=== PATIENT | male | born 1955 | race Asian ===

== ENCOUNTER 2022-12-25 13:13 | Inpatient (IN) | payer MEDICARE, OTHER ==
[~2022-12-25] VITALS: Ht 160 cm; Wt 68.7 kg
[2022-12-25] MEDS ORDERED: ONDANSETRON HCL 4 MG/2 ML VIAL IV ONE (15:45)
[2022-12-25] MEDS ORDERED: HYDROmorphone HCL 2 MG/ML VL/or syr IM ONE (15:45)
[2022-12-25 17:02] VITALS: PULSE 62; RESP 18; O2SAT 9
[2022-12-25 18:02] LABS: Basophils # (auto) 0 10 ^3/uL (0-0.2); Basophils % (auto) 0.2 % (0.0-2.0); Eosinophils # (auto) 0 10 ^3/uL (0-0.8); Eosinophils % (auto) 0.3 % (0.0-7.0); Hematocrit 47.5 % (41.0-53.0); Lymphocytes # (auto) 1.1 10 ^3/uL (0.4-5.4); Lymphocytes % (auto) 17.5 % (10.0-50.0); Mean Corpuscular Hemoglobin 29.5 pg (28.0-32.0); Mean Corpuscular Hgb Conc. 33.7 g/dL (32.0-36.0); Mean Corpuscular Volume 87.6 fL (80.0-100.0); Monocytes # (auto) 0.4 10 ^3/uL (0-1.3); Monocytes % (auto) 5.9 % (0.0-12.0); Neutrophils # (auto) 4.9 10 ^3/uL (1.6-8.6); Neutrophils % (auto) 76.1 % (37.0-80.0); Nucleated Red Blood Cells % 0.2 %; Red Blood Cells 5.42 10^6/uL (4.5-5.90); Red Cell Distribution Width 13.5 % (11.8-14.3); White Blood Cell 6.4 10^3/uL (4.4-10.8)
[2022-12-25 18:17] LABS: Albumin 3.8 g/dL (3.4-5.0); Calcium 8.4 mg/dL (8.5-10.1); Potassium 3.8 mmol/L (3.5-5.1)
[2022-12-25 18:21] LABS: BUN/Creatinine Ratio 17.8 (10.0-20.0); Total Protein 7.4 g/dL (6.4-8.2)
[2022-12-25] MEDS ORDERED: MORPHINE SULFATE INJ 2 MG/ml SYRG IV PRN (18:45)
[2022-12-25] MEDS ORDERED: ONDANSETRON HCL 4 MG/2 ML VIAL IV PRN (18:45)
[2022-12-25] MEDS ORDERED: DOCUSATE SOD 100 MG CAP PO PRN (18:45)
[2022-12-25] MEDS ORDERED: ACETAMINOPHEN 325 MG TAB PO PRN (18:45)
[2022-12-25] MEDS ORDERED: NITROGLYCERIN 0.4 MG SL TAB SL PRN (18:45)
[2022-12-25 19:25] VITALS: PULSE 61; RESP 13; O2SAT 94
[2022-12-25] MEDS: SODIUM CHLORIDE 0.9% 1,000 ML IV SCH (19:30)
[2022-12-25] MEDS: SODIUM CHLOR 0.9% PF (SALINE LOCK) 10ML VIAL/SYR IV SCH (22:11)
[2022-12-26 05:27] LABS: Basophils # (auto) 0 10 ^3/uL (0-0.2); Basophils % (auto) 0.1 % (0.0-2.0); Eosinophils # (auto) 0 10 ^3/uL (0-0.8); Eosinophils % (auto) 0.6 % (0.0-7.0); Hematocrit 46.7 % (41.0-53.0); Hemoglobin 15.7 g/dL (13.5-17.5); Lymphocytes # (auto) 1.1 10 ^3/uL (0.4-5.4); Lymphocytes % (auto) 20.5 % (10.0-50.0); Mean Corpuscular Hemoglobin 29.5 pg (28.0-32.0); Mean Corpuscular Hgb Conc. 33.6 g/dL (32.0-36.0); Mean Corpuscular Volume 87.8 fL (80.0-100.0); Monocytes # (auto) 0.3 10 ^3/uL (0-1.3); Monocytes % (auto) 6.6 % (0.0-12.0); Neutrophils # (auto) 3.8 10 ^3/uL (1.6-8.6); Neutrophils % (auto) 72.2 % (37.0-80.0); Nucleated Red Blood Cells % 0.1 %; Red Blood Cells 5.32 10^6/uL (4.5-5.90); Red Cell Distribution Width 13.8 % (11.8-14.3); White Blood Cell 5.2 10^3/uL (4.4-10.8)
[2022-12-26 05:39] LABS: Albumin 3.6 g/dL (3.4-5.0); BUN/Creatinine Ratio 17.9 (10.0-20.0); Bilirubin, Total 0.8 mg/dL (0.2-1.0); Calcium 8.6 mg/dL (8.5-10.1); Total Protein 6.7 g/dL (6.4-8.2)
[2022-12-26] MEDS: SODIUM CHLOR 0.9% PF (SALINE LOCK) 10ML VIAL/SYR IV SCH ×3 (06:08→21:53)
[2022-12-26] MEDS: MORPHINE SULFATE INJ 2 MG/ml SYRG IV PRN (08:47)
[2022-12-26 08:56] VITALS: PULSE 73; RESP 15; O2SAT 97
[2022-12-26] MEDS: SODIUM CHLORIDE 0.9% 1,000 ML IV SCH (11:59)
[2022-12-26 13:36] VITALS: RESP 18
[2022-12-26] MEDS: HYDROcodone-ACET 5/325MG TAB PO PRN (14:24)
[2022-12-26 15:36] LABS: Partial Thromboplastin Time 27.7 SEC (24.5-34.5)
[2022-12-26 17:00] VITALS: BP 121/81; PULSE 73; RESP 17; TEMP 98.1; O2SAT 93
[2022-12-26] MEDS ORDERED: ENOXAPARIN SOD 40 MG/0.4 ML SYRINGE SC ONE (18:00)
[2022-12-26 20:00] VITALS: BP 136/88; PULSE 71; PULSE 75; RESP 18; TEMP 98.8; O2SAT 93
[2022-12-27] VITALS (7 sets, daily range): BP systolic 92–136; BP diastolic 57–88; PULSE 58–76; RESP 14–18; TEMP 97.9–98.8; O2SAT 92–93
[2022-12-27] MEDS: SODIUM CHLORIDE 0.9% 1,000 ML IV SCH ×2 (04:12→20:16)
[2022-12-27] MEDS: HYDROcodone-ACET 5/325MG TAB PO PRN ×3 (04:18→20:50)
[2022-12-27] MEDS: SODIUM CHLOR 0.9% PF (SALINE LOCK) 10ML VIAL/SYR IV SCH ×3 (05:53→20:50)
[2022-12-27 06:09] LABS: Basophils # (auto) 0 10 ^3/uL (0-0.2); Basophils % (auto) 0.2 % (0.0-2.0); Eosinophils # (auto) 0 10 ^3/uL (0-0.8); Hematocrit 46.9 % (41.0-53.0); Hemoglobin 15.9 g/dL (13.5-17.5); Lymphocytes # (auto) 1.5 10 ^3/uL (0.4-5.4); Lymphocytes % (auto) 33.1 % (10.0-50.0); Mean Corpuscular Hemoglobin 29.8 pg (28.0-32.0); Mean Corpuscular Hgb Conc. 33.8 g/dL (32.0-36.0); Mean Corpuscular Volume 88.2 fL (80.0-100.0); Monocytes # (auto) 0.4 10 ^3/uL (0-1.3); Neutrophils # (auto) 2.5 10 ^3/uL (1.6-8.6); Neutrophils % (auto) 56.7 % (37.0-80.0); Nucleated Red Blood Cells % 0.1 %; Red Blood Cells 5.32 10^6/uL (4.5-5.90); Red Cell Distribution Width 13.5 % (11.8-14.3); White Blood Cell 4.4 10^3/uL (4.4-10.8)
[2022-12-27 06:42] LABS: Albumin 3.4 g/dL (3.4-5.0); BUN/Creatinine Ratio 17.1 (10.0-20.0); Bilirubin, Total 0.7 mg/dL (0.2-1.0); Calcium 8.4 mg/dL (8.5-10.1); Total Protein 7.1 g/dL (6.4-8.2)
[2022-12-27] MEDS: PANTOPRAZOLE 40 MG TAB PO SCH (09:19)
[2022-12-28] VITALS (7 sets, daily range): BP systolic 101–136; BP diastolic 61–91; PULSE 62–82; RESP 14–18; TEMP 97.7–98.8; O2SAT 93–95
[2022-12-28] MEDS: SODIUM CHLOR 0.9% PF (SALINE LOCK) 10ML VIAL/SYR IV SCH ×3 (05:44→22:21)
[2022-12-28 05:45] LABS: Basophils # (auto) 0 10 ^3/uL (0-0.2); Basophils % (auto) 0.5 % (0.0-2.0); Eosinophils # (auto) 0.1 10 ^3/uL (0-0.8); Eosinophils % (auto) 1.3 % (0.0-7.0); Hematocrit 46.1 % (41.0-53.0); Hemoglobin 15.6 g/dL (13.5-17.5); Lymphocytes # (auto) 1.8 10 ^3/uL (0.4-5.4); Lymphocytes % (auto) 45.5 % (10.0-50.0); Mean Corpuscular Hemoglobin 29.9 pg (28.0-32.0); Mean Corpuscular Hgb Conc. 33.9 g/dL (32.0-36.0); Mean Corpuscular Volume 88.2 fL (80.0-100.0); Monocytes # (auto) 0.5 10 ^3/uL (0-1.3); Monocytes % (auto) 11.8 % (0.0-12.0); Neutrophils # (auto) 1.7 10 ^3/uL (1.6-8.6); Neutrophils % (auto) 40.9 % (37.0-80.0); Nucleated Red Blood Cells % 0.1 %; Red Blood Cells 5.23 10^6/uL (4.5-5.90); Red Cell Distribution Width 13.4 % (11.8-14.3); White Blood Cell 4.1 10^3/uL (4.4-10.8)
[2022-12-28 06:08] LABS: BUN/Creatinine Ratio 16.7 (10.0-20.0); Calcium 8.5 mg/dL (8.5-10.1); Potassium 3.7 mmol/L (3.5-5.1)
[2022-12-28] MEDS: PANTOPRAZOLE 40 MG TAB PO SCH (10:01)
[2022-12-28] MEDS: HYDROcodone-ACET 5/325MG TAB PO PRN ×2 (12:49→22:16)
[2022-12-28] MEDS: SODIUM CHLORIDE 0.9% 1,000 ML IV SCH (14:14)
[2022-12-29] VITALS (8 sets, daily range): BP systolic 92–127; BP diastolic 65–87; PULSE 57–94; RESP 16–20; TEMP 36.6; O2SAT 91–100
[2022-12-29] MEDS: SODIUM CHLORIDE 0.9% 1,000 ML IV SCH ×2 (05:15→22:56)
[2022-12-29] MEDS: HYDROcodone-ACET 5/325MG TAB PO PRN ×3 (05:19→19:49)
[2022-12-29] MEDS: SODIUM CHLOR 0.9% PF (SALINE LOCK) 10ML VIAL/SYR IV SCH ×3 (06:01→22:57)
[2022-12-29] MEDS: PANTOPRAZOLE 40 MG TAB PO SCH (10:03)
[2022-12-30] VITALS (7 sets, daily range): BP systolic 100–124; BP diastolic 60–92; PULSE 68–82; RESP 14–20; TEMP 97.4–98; O2SAT 92–95
[2022-12-30] MEDS: HYDROcodone-ACET 5/325MG TAB PO PRN ×3 (02:34→20:10)
[2022-12-30] MEDS: SODIUM CHLOR 0.9% PF (SALINE LOCK) 10ML VIAL/SYR IV SCH ×3 (06:29→22:13)
[2022-12-30] MEDS: PANTOPRAZOLE 40 MG TAB PO SCH (09:51)
[2022-12-30] MEDS: SODIUM CHLORIDE 0.9% 1,000 ML IV SCH (17:42)
[2022-12-31 05:00] VITALS: BP 98/62; PULSE 63; RESP 20; TEMP 97.6; O2SAT 94
[2022-12-31] MEDS: HYDROcodone-ACET 5/325MG TAB PO PRN ×2 (05:07→14:05)
[2022-12-31] MEDS: SODIUM CHLOR 0.9% PF (SALINE LOCK) 10ML VIAL/SYR IV SCH ×2 (05:07→13:38)
[2022-12-31] MEDS: SODIUM CHLORIDE 0.9% 1,000 ML IV SCH ×2 (08:35→09:04)
[2022-12-31 08:53] VITALS: BP 119/77; PULSE 56; RESP 16; TEMP 97.2; O2SAT 94
[2022-12-31] MEDS: PANTOPRAZOLE 40 MG TAB PO SCH (09:03)
[2022-12-31] MEDS ORDERED: ENOXAPARIN SOD 40 MG/0.4 ML SYRINGE SC SCH (10:00)
[2022-12-31] MEDS: MORPHINE SULFATE INJ 2 MG/ml SYRG IV PRN ×2 (11:14→17:31)
[2022-12-31 13:14] VITALS: BP 107/71; PULSE 63; RESP 16; TEMP 97.4; O2SAT 96
[2022-12-31 17:00] VITALS: BP 125/79; PULSE 94; RESP 15; TEMP 97.7; O2SAT 94
[2022-12-31 17:31] VITALS: BP 125/79; PULSE 94; RESP 20
== END 2022-12-31 17:59 | DRG 552 ==
LOC: EDBD 13:13 → ER 13:13 → TELE 18:51 → TELE-CENTR 12-26 13:26 → CENTRAL 12-28 21:16
PROVIDERS: ADMIT Internal Medicine; ATTEND Orthopaedic Surgery
DX: S32.020A Wedge compression fracture of second lumbar vertebra, initial encounter for closed fracture (principal); W01.0XXA Fall on same level from slipping, tripping and stumbling without subsequent striking against object, initial encounter; I10 Essential (primary) hypertension; M48.061 Spinal stenosis, lumbar region without neurogenic claudication; R29.6 Repeated falls; Y93.89 Activity, other specified; Y92.89 Other specified places as the place of occurrence of the external cause; Y99.8 Other external cause status
CPT/HCPCS: 36415; 71045; 72131; 72148; 73502; 80048; 80053; 82550; 85025; 85610; 85730; 93005; 96372; 96374; 97110; 97116; 97163; 97530; G0378; J2405